=== PATIENT | female | born 1980 | race Caucasian/White ===

== ENCOUNTER 2023-10-06 09:29 | Emergency (ER) | payer OTHER, SELFPAY ==
[2023-10-06 09:31] VITALS: BP 133/90
--- NOTE | 2023-10-06 09:52 | ED.GENMED ---
History of Present Illness
General
Chief Complaint: Abdominal Pain
Source: patient
Exam Limitations: none
Time Seen by Provider: 10/06/23 09:38
Nursing documentation reviewed up to this point in time: agreed with
History of Present Illness
History of Present Illness:
Patient presents to ED secondary to intermittent, but worsening right lower abdominal pain over the past 2 weeks. Abdominal pain described as sharp, nonradiating, associated with decreased appetite and intermittent nausea sensation. Denies trauma.
Denies fever or chills. Patient has had history of ovarian cysts, but states that her symptoms are different. Denies difficulty urination. Denies back pain. Denies recent change in medications or diet. Patient has been evaluated by her [employer]
physician and outpatient ultrasound of pelvis has been ordered.
Past History
Past History
ED Past Medical History: Asthma and Other (Ulcers)
ED Past Surgical History: Cholecystectomy and Gynecological (LEEP procedure)
Social History
Tobacco: Smoker
Alcohol: Occasional
Personal:
Living: with family
Review of Systems
Review of Systems
Allergies reviewed?: Yes
All Other Systems: ROS reviewed and negative except as documented in HPI and ROS
Constitutional: Reports no symptoms
EENT: Reports no symptoms
Respiratory: Reports no symptoms
Cardiac: Reports no symptoms
ABD/GI: Reports abdominal pain and nausea; Denies vomiting or diarrhea
: Reports no symptoms; Denies frequency
Musculoskeletal: Reports no symptoms
Skin: Reports no symptoms
Neurological: Reports no symptoms
Phy Exam
Physical Exam
Physical Exam:
Physical Exam
General: mild painful distress, not acutely ill. afebrile
Head: nc/at. eomi
Neck: supple. normal range of motion.
Heart: s1/s2 regular rate and rhythm, no murmur. equal radial pulses.
Lungs: no acute respiratory distress. clear bilaterally
Abdomen: normal bowel sounds. mild jeannie-umbilical tenderness to palpation. no distention
Neuro: alert and oriented. no focal neurological deficits
Skin: no rash
Psychiatric: well kept. interactive and cooperative
Extremities: no edema. no calf tenderness.
Course
Orders/Labs/Results
Orders:
Orders
10/06/23 09:51
Iohexol [Omnipaque] See Protocol PO NOW STA
10/06/23 09:52
CT Abd/pel W Iv And Oral Contr Urgent
Comment:
Reason For Exam: RLQ pain
0.9% Sodium Chloride 500 ml [Nss] 500 ml IV BOLUS
Ondansetron Injectable [Zofran] 4 mg IV NOW STA
Test Result ONCE
10/06/23 10:10
Comprehensive Metabolic Panel Urgent
HCG, Serum Qualitative Screen Urgent
Magnesium Urgent
10/06/23 10:11
Complete Blood Count/With Diff Urgent
10/06/23 11:18
Urinalysis Reflex To Culture Urgent
Date Specimen was Collected: 10/06/23
Time Specimen was Collected: 11:14
Abnormal Lab Results
10/06/23 10/06/23
10:10 10:11
MCH 31.9 H pg
(27.0-31.0)
Absolute Lymphs (auto) 1.0 L 10^3/uL
(1.2-3.4)
Lymphocytes % 16.8 L %
(20.5-51.1)
Glucose 105 H mg/dl
(70-99)
10/06/23 10:11
10/06/23 10:10
Vital Signs
Initial and Last Documented VS:
Initial Vital Signs
Temp Pulse Resp BP Pulse Ox
98.1 F 85 16 133/90 98
10/06/23 09:31 10/06/23 09:31 10/06/23 09:31 10/06/23 09:31 10/06/23 09:31
Last Documented Vital Signs
Temp Pulse Resp BP Pulse Ox
98.2 F 64 18 134/67 100
10/06/23 13:40 10/06/23 13:40 10/06/23 13:40 10/06/23 13:40 10/06/23 13:40
MDM/Problems Addressed
MDM/Problems Addressed:
Patient with an unremarkable workup in ED, including blood work and CT scan abdomen pelvis. Patient otherwise remains afebrile, hemodynamically stable, and nontoxic-appearing. Repeat abdominal exam: Soft and nontender. Patient with nonspecific
abdominal pain, which could be follow-up as an outpatient. Advised to return to ED with worsening symptoms, i.e. fever/worsening pain/vomiting. Patient expresses understand at time of discharge.
*Critical Care Note
Total Time (30-74mins, 75-104mins- exclusive of procedures): Not Applicable
ED Attending Note
-
Portions of this chart may have been created with voice recognition software.� Occasional wrong word or��sound alike� substitutions may have occurred due to the inherent limitations of voice recognition software.
Discharge Plan
Departure
Patient Disposition: Home (Routine Discharge)
Date of Disposition: 10/06/23
Time of Disposition: 13:33
Patient with high blood pressure during this ER visit?: Yes
Discharge Problem:
Abdominal pain
Instructions: Abdominal Pain
Prescriptions:
No Action
lorazepam 0.5 MG tablet
0.5 mg PO PRN PRN (Reason: ANXIETY)
Referrals:
Abram Negron DO [Family Provider] -
Activity Restrictions/Additional Instructions:
As discussed, please follow-up with your primary care physician and/or [facility] physician for further evaluation and treatment. Please return to ED with worsening symptoms, i.e. fever/worsening pain/vomiting.
Interventions
Interventions:
*Risk Screen - Suicide Last Done: 10/06/23 10:54
*General Assessment Last Done: 07/02/24 09:31
*Neglect/Abuse Screening Last Done: 10/06/23 10:54
ED- Fall Risk Assessment Last Done: 10/06/23 10:55
*ED COVID-19 Vaccine History Last Done: 10/06/23 09:31
*Nursing Disposition Last Done: 10/06/23 13:41
[facility] Assessment Last Done: 10/06/23 10:13
Discharge Date and Time
Discharge Date/Time: 10/06/23 13:42
Print Language: SLOVENIAN
[2023-10-06] MEDS: OMNIPAQUE 50 ML PO (10:02)
[2023-10-06] MEDS: ZOFRAN 4 MG IV (10:07)
[2023-10-06] MEDS: NSS 500 IV (10:07)
[2023-10-06 10:19] LABS: % Basophils 0.8 % (0-2); % Eosinophils 1.5 % (0-6); % Immature Granulocytes 0.3 % (0-0.5); % Lymphocytes 16.8 % (20.5-51.1); % Monocytes 8.5 % (1.7-9.3); % Neutrophils 72.1 % (42.2-75.2); Absolute Basophils 0.1 10^3/uL (0-0.2); Absolute Eosinophils 0.1 10^3/uL (0-0.7); Absolute Monocytes 0.5 10^3/uL (0.1-0.6); Absolute Neutrophils 4.3 10^3/uL (1.4-6.5); Hemoglobin 14.4 g/dL (12.0-16.0); Mean Corp Hgb Conc. 34.3 g/dL (33.0-37.0); Mean Corpuscular Hgb 31.9 pg (27.0-31.0); Mean Corpuscular Volume 92.9 fL (81.0-99.0); Mean Platelet Volume 9.6 fL (7.4-10.4); Nucleated Red Blood Cells % 0 %; Platelet Count 274 10^3/uL (130-400); Red Blood Cell Count 4.52 10^6/uL (4.20-5.40); White Blood Cell Count 5.9 10^3/uL (4.8-10.8)
[2023-10-06 10:20] VITALS: BMI 24.5
[2023-10-06 10:37] LABS: HCG, Serum Qualitative Screen Negative
[2023-10-06 10:39] LABS: ALT (SGPT) 26 U/L (0-35); AST (SGOT) 36 U/L (14-36); Albumin 4.8 g/dl (3.5-5.0); Alkaline Phosphatase 59 U/L (38-126); Blood Urea Nitrogen 7 mg/dl (7-17); Calcium 10.2 mg/dl (8.4-10.2); Carbon Dioxide 27 mmol/L (22-30); Chloride 105 mmol/L (98-107); Estimated Creatinine Clearance 74 ml/min; Glucose 105 mg/dl (70-99); Magnesium 1.9 mg/dl (1.6-2.3); Potassium 4.9 mmol/L (3.5-5.1); Sodium 139 mmol/L (135-145); Total Bilirubin 0.9 mg/dl (0.2-1.3); Total Protein 7.4 g/dl (6.3-8.2); eGFR > 60.00
[2023-10-06 11:40] VITALS: BP 127/79
[2023-10-06 11:58] LABS: Urine Albumin Negative (Neg - Trace); Urine Bilirubin Negative (Negative); Urine Character Clear (Clear); Urine Color Yellow; Urine Glucose Negative (Negative); Urine Ketone Negative (Negative); Urine Leukocyte Negative (Negative); Urine Nitrite Negative (Negative); Urine Occult Blood Negative (Negative); Urine Urobilinogen Negative (Neg - 1+)
[2023-10-06 13:40] VITALS: BP 134/67
== END 2023-10-06 13:42 | disposition home or self-care (01) ==
LOC: EMR 09:29
PROVIDERS: EMERGENCY PHYSICIAN Emergency Medicine; FAMILY PHYSICIAN Internal Medicine
DX: R10.31 Right lower quadrant pain (principal); Z90.49 Acquired absence of other specified parts of digestive tract
CPT/HCPCS: 99284; 96374; 96361; 74177; 80053; 81003; 83735; 84703; 85025; Q9967

== ENCOUNTER → 2023-12-28 13:05 | Outpatient (REF) | payer OTHER, SELFPAY | LOC: HWWDC 13:05 | PROVIDERS: ATTENDING PHYSICIAN Obstetrics & Gynecology; FAMILY PHYSICIAN Internal Medicine | DX: Z12.31 Encounter for screening mammogram for malignant neoplasm of breast (principal); R10.2 Pelvic and perineal pain | CPT/HCPCS: 76830; 76856; 77063; 77067 ==